=== PATIENT | female | born 1995 | race Caucasian/White ===

== ENCOUNTER 2017-09-18 20:20 | Emergency (ER) | payer MEDICAID ==
[~2017-09-18] VITALS: Ht 170.2 cm; Wt 76.2 kg
[~2017-09-18 20:20] MED LIST: LORA10CA
[2017-09-18 20:22] VITALS: BP_SYST 118
--- NOTE | 2017-09-18 20:22 | NUR ---
Patient to ER bed 2 to gown for evaluation. Side rails up. Report given to Nisha DALTON.
--- NOTE | 2017-09-18 20:28 | NUR ---
Patient A/O x 4 presented to ED with c/o R wrist and R ankle pain post mechanical fall in heels, pain 10/10. No deformity noted. Pt denies SOB. No distress noted. Will continue to monitor.
--- NOTE | 2017-09-18 20:40 | NUR ---
Patient off unit via wheelchair to radiology.
--- NOTE | 2017-09-18 21:15 | NUR ---
ER Dr. Bailey at bedside examining patient.
[2017-09-18] MEDS ORDERED: IBUPROFEN 800 MG TABLET PO ONE (21:45)
[2017-09-18] MEDS ORDERED: IBUPROFEN 800 MG TABLET ONE (21:54)
[2017-09-18 22:54] VITALS: BP_SYST 122
--- NOTE | 2017-09-18 22:54 | NUR ---
Patient given written and verbal discharge instructions and verbalizes understanding. ER MD discussed with patient the results and treatment provided. Patient in stable condition. ID arm band removed. Rx of Motrin given. Patient educated on pain management and to follow up with PMD. Pain Scale 3/10. Opportunity for questions provided and answered. Medication side effect fact sheet provided.
== END 2017-09-18 22:54 | disposition home or self-care (01) ==
LOC: SED 20:20
DX: S93.401A Sprain of unspecified ligament of right ankle, initial encounter (principal); S63.501A Unspecified sprain of right wrist, initial encounter; J45.909 Unspecified asthma, uncomplicated; Z88.0 Allergy status to penicillin; W01.0XXA Fall on same level from slipping, tripping and stumbling without subsequent striking against object, initial encounter; Y93.01 Activity, walking, marching and hiking; Y92.89 Other specified places as the place of occurrence of the external cause; Y99.8 Other external cause status
CPT/HCPCS: 99284

== ENCOUNTER 2018-07-13 18:56 | Emergency (ER) | payer MEDICAID, OTHER ==
[~2018-07-13] VITALS: Ht 172.7 cm; Wt 77.1 kg
[2018-07-13 18:56] VITALS: BP_SYST 134
[2018-07-13] MEDS ORDERED: KETOROLAC TROMETHAMINE 60 MG/2 ML VIAL IM ONE (20:15)
[2018-07-13] MEDS ORDERED: DIPH-TET-PERTUS Vaccine 0.5 ML VIAL (ADACEL) I.M. ONE (20:15)
[2018-07-13 21:49] VITALS: BP_SYST 134
== END 2018-07-13 21:47 | disposition home or self-care (01) ==
LOC: SED 18:56
DX: S93.401A Sprain of unspecified ligament of right ankle, initial encounter (principal); S16.1XXA Strain of muscle, fascia and tendon at neck level, initial encounter; S60.221A Contusion of right hand, initial encounter; S60.512A Abrasion of left hand, initial encounter; R11.10 Vomiting, unspecified; J45.909 Unspecified asthma, uncomplicated; Z88.0 Allergy status to penicillin; V43.92XA Unspecified car occupant injured in collision with other type car in traffic accident, initial encounter; Y93.89 Activity, other specified; Y92.410 Unspecified street and highway as the place of occurrence of the external cause; Y99.8 Other external cause status
CPT/HCPCS: 70160; 72040; 73130; 73610; 81025; 90471; 90715; 96372; 99283; J1885

== ENCOUNTER 2020-04-19 14:32 | Emergency (ER) | payer SELFPAY ==
[~2020-04-19] VITALS: Ht 172.7 cm; Wt 79.4 kg
[2020-04-19 14:38] VITALS: BP_SYST 120
--- NOTE | 2020-04-19 14:48 | NUR ---
Triaged in tent, report given to Dr. Quintanilla
--- NOTE | 2020-04-19 14:50 | NUR ---
Pt brought by self, A&Ox4, pt presents to ER with LAC on R 1st and 4th finger, bleeding controlled, afebrile.
--- NOTE | 2020-04-19 15:10 | NUR ---
Dr Quintanilla evaluating patient at bedside
[2020-04-19 16:38] VITALS: BP_SYST 120
--- NOTE | 2020-04-19 16:40 | NUR ---
Patient given written and verbal discharge instructions and verbalizes understanding. ER MD discussed with patient the results and treatment provided. Patient in stable condition. ID arm band removed. No RX given. Patient educated on pain management and to follow up with PMD. Pain Scale 0/10. Opportunity for questions provided and answered. Medication side effect fact sheet provided.
== END 2020-04-19 16:40 | disposition home or self-care (01) ==
LOC: SED 14:32
DX: S61.011A Laceration without foreign body of right thumb without damage to nail, initial encounter (principal); W25.XXXA Contact with sharp glass, initial encounter; Y93.89 Activity, other specified; Y92.89 Other specified places as the place of occurrence of the external cause; Y99.8 Other external cause status
CPT/HCPCS: 99282

== ENCOUNTER 2020-04-23 16:25 | Emergency (ER) | payer SELFPAY ==
[~2020-04-23] VITALS: Ht 172.7 cm; Wt 79.4 kg
[2020-04-23 16:32] VITALS: BP_SYST 119
== END 2020-04-23 16:32 | disposition home or self-care (01) ==
LOC: SED 16:25
DX: S61.011D Laceration without foreign body of right thumb without damage to nail, subsequent encounter (principal); X58.XXXD Exposure to other specified factors, subsequent encounter; Z88.0 Allergy status to penicillin
CPT/HCPCS: 99281

== ENCOUNTER 2020-09-01 22:51 | Emergency (ER) | payer OTHER ==
[~2020-09-01] VITALS: Ht 172.7 cm; Wt 81.6 kg
[2020-09-01 22:55] VITALS: BP_SYST 135
[2020-09-01] MEDS ORDERED: ASPIRIN 81 MG TAB.CHEW PO ONE (23:15)
[2020-09-01 23:35] LABS: BASOPHILS # (AUTO) 0.3 K/uL (0.0-0.2); BASOPHILS % (AUTO) 2.8 % (0.0-2.0); EOSINOPHILS # (AUTO) 0.6 K/uL (0.0-0.4); EOSINOPHILS % (AUTO) 5.3 % (0.0-4.0); HEMATOCRIT 40.5 % (36-48); HEMOGLOBIN 13.9 g/dL (12.0-16.0); LYMPHOCYTES # (AUTO) 3.6 K/uL (1.0-5.5); LYMPHOCYTES % (AUTO) 33.8 % (20.5-51.5); MEAN CORPUSCULAR HEMOGLOBIN 31 pg (27-31); MEAN CORPUSCULAR HGB CONC 34 % (32-36); MEAN CORPUSCULAR VOLUME 90 fL (79.0-98.0); MONOCYTES # (AUTO) 0.5 K/uL (0.0-1.0); MONOCYTES % (AUTO) 4.3 % (1.7-9.3); NEUTROPHILS # (AUTO) 5.8 K/uL (1.8-7.7); NEUTROPHILS % (AUTO) 53.8 % (40.0-70.0); PLATELET COUNT (AUTO) 277 K/uL (130-430); RED BLOOD CELL COUNT(AUTO) 4.53 MIL/uL (4.2-6.2); RED CELL DISTRIBUTION WIDTH 12.8 % (9.0-15.0); WHITE BLOOD COUNT (AUTO) 10.7 K/uL (4.8-10.8)
[2020-09-01 23:44] LABS: CALCIUM 8.4 mg/dL (8.4-11.0); CREATININE 0.89 mg/dL (0.55-1.30); POTASSIUM 3.3 mmol/L (3.5-5.1)
[2020-09-01 23:55] LABS: ALBUMIN 3.5 g/dL (3.4-4.8); TOTAL BILIRUBIN 0.5 mg/dL (0.0-1.0)
[2020-09-02 00:17] LABS: BARBITURATE, URINE NEGATIVE (NEG <=200); BENZODIAZEPINE, URINE NEGATIVE (NEG <=150); CANNABINOID, URINE NEGATIVE (NEG <=50); COCAINE, URINE POSITIVE (NEG <=150); METHAMPHETAMINES SCREEN,URINE NEGATIVE (NEG <=500); OPIATE, URINE NEGATIVE (NEG <=100); PHENCYCLIDINE SCREEN,URINE NEGATIVE (NEG <=25); UR TRICYCLIC ANTIDEPRESSANTS NEGATIVE (NEG <=300); URINE AMPHETAMINE NEGATIVE (NEG <=500); URINE METHADONE NEGATIVE (NEG <=200); URINE OXYCODONE SCREEN NEGATIVE (NEG <=100); URINE PROPOXYPHENE SCREEN NEGATIVE (NEG <=300)
[2020-09-02] MEDS ORDERED: LORazepam 2 MG/ML VIAL IM ONE ×2 (01:30→01:45)
[2020-09-02] MEDS ORDERED: KETOROLAC TROMETHAMINE 60 MG/2 ML VIAL IM ONE (01:45)
[2020-09-02 04:00] VITALS: BP_SYST 131
== END 2020-09-02 04:00 | disposition home or self-care (01) ==
LOC: SED 22:51
DX: R07.2 Precordial pain (principal); Z88.0 Allergy status to penicillin; Z79.899 Other long term (current) drug therapy
CPT/HCPCS: 36415; 71045; 80053; 80307; 82550; 83880; 84484; 84702; 85025; 85379; 96372; 99285; J1885; J2060